=== PATIENT | female | born 1970 | race Caucasian/White ===

== ENCOUNTER 2024-05-11 14:13 | Outpatient (AMB) | payer OTHER, SELFPAY ==
--- NOTE | 2024-05-11 14:32 | A.OFFVIS_ITS ---
Vital Signs 05/11/24 14:33 Height 5 ft 3 in Weight 143 lb BMI 25.3 BP 100/62 Blood Pressure Location Lt brachial Position Sitting Pulse 80 Pulse Source Pulse Oximeter Pulse Oximetry (%) 100 Oxygen Delivery Method Room Air Intake Visit Reasons: Carpal tunnel Intake Note: Patient presents today for carpal tunnel syndrome. Allergies ciprofloxacin [From Cipro] Allergy (Mild, Verified 05/11/24 14:36) Rash Penicillins Allergy (Mild, Verified 05/11/24 14:36) Unknown HPI HPI Carpal tunnel: Details: Intermittent right parathesia when she wakes up in the morning. Left hand parathesia resolved with wrist brace. Her left wrist brace is inter changeable and she sometimes uses it on her right wrist with benefit. chronic left sided neck pain. She has had pain radiating to anterior chest/shoulder, self resolves. She has a associated chest pain with stress. When she palpates left anterior superior chest she has pain. In the last year she has had echocardiogram and stress test, which patient reports were normal. [facility] Medical History (Updated 05/11/24 @ 21:17 by Gagandeep Bautista MD) Shoulder pain Carpal tunnel syndrome Social History (Updated 05/11/24 @ 14:42 by Lavinia Archuleta CMA) Alcohol intake: current Alcohol intake frequency: a few times a month Alcohol type: wine Patient Tobacco Use Status: Never used Tobacco Review of Systems Const All systems reviewed & are unremarkable except as noted in HPI and below Physical Exam Vital Signs: Last Vital Signs Pulse 80 05/11/24 14:33 BP 100/62 05/11/24 14:33 Pulse Ox 100 05/11/24 14:33 Oxygen Delivery Method Room Air 05/11/24 14:33 BMI result Body Mass Index 25.3 Const Other: General: Comfortable Skin: No lesions seen MSK: Positive Phalen's test bilateral. Good range of motion of wrists. No synovitis of any joints in her hands and wrists. Tenderness to palpate left trapezius. No spinous process tenderness of cervical spine. Good range of motion of cervical spine. She has localized tenderness to left anterior chest inferior 2 clavicle without any skin changes or masses palpated. Assessment & Plan Assessment & Plan (1) Carpal tunnel syndrome: Comment: Bilateral. Clinical diagnosis. She has found benefit with using left wrist brace. Code(s): G56.00 - Carpal tunnel syndrome, unspecified upper limb Category: Medical Plan: Bilateral upper extremity EMGs ordered Prescription for right carpal wrist brace given to patient Continue to use wrist braces at night Return to clinic in 3 months (2) Trapezius muscle strain: Comment: Left sided neck pain is due to trapezius strain. Discussed diagnosis and manag ement. Code(s): S46.819A - Strain of other muscles, fascia and tendons at shoulder and upper arm level, unspecified arm, initial encounter Category: Medical Plan: PT ordered with myofascial release Return to clinic in 3 months (3) Chest pain, muscular: Comment: Likely due to pectoralis major strain. Discussed diagnosis and management Code(s): R07.89 - Other chest pain Category: Medical Plan: Applied topical diclofenac gel 1% to affected area every 4-6 hours as needed or try topical lidocaine OTC applied to affected area every 4-6 hours as needed PT ordered for patient to obtain exercises for stretching chest muscles Return to clinic in 3 months Orders: Orders NE electromyogram (EMG) Today G56.00 - Carpal tunnel syndrome, unspecified up per limb PT Evaluation and Treatment Today R07.89 - Other chest pain, S46.819A - Strain of other muscles, fascia and tendons at shoulder and upper arm level, unspecified arm, initial encounter Medications: New arm brace (Wrist Brace) Wear at night Right cockup wrist brace Dx: carpal tunnel syndrome 1 ea 0RF arm brace (Wrist Brace) Wear at night Right cockup wrist brace Dx: carpal tunnel syndrome 1 ea 0RF arm brace (Wrist Brace) Wear at night Right cockup wrist brace Dx: carpal tunnel syndrome 1 ea 0RF Coding Level of Care Code Est Pt Level 4 (61395) Complex EM visit Add On G2211 Diagnoses Carpal tunnel syndrome G56.00 Trapezius muscle strain S46.819A Chest pain, muscular R07.89
[2024-05-11 14:33] VITALS: BP 100/62; PULSE 80; O2SAT 100; BMI 25.3
--- OUTSIDE RECORDS SUMMARY | 2024-05-11 16:47 | XMS_ITS | Continuity of Care Document ---
Author Organization [facility] Address [address] [place] [address], [address] [place] [address]- Care Team Providers Care Last Marker Name Role Phone Brandan MARIN, Wolf Glass Primary Care Physician [phone] Encounter [facility] [id number] Date(s): 03/11/24 - 04/10/24 [facility] [employer] [facility] [address], [address] [place], [place] [address] Attending Physician: Rita Doty Admitting Physician: Rita Doty Referring Physician: Rita Doty Encounter Type: Triage Allergies, Adverse Reactions, Alerts Substance Criticality Severity Reaction Reaction Severity Status penicillin Active Cipro Active Immunizations Given and Recorded Vaccine Date Status Refusal Reason diphtheria/tetanus/pertussis, acel(DTaP) 12/08/10 Given Medications buPROPion 300 mg/24 hours (XL) oral tablet, extended release 1 tablet = 300 mg, By Mouth, Daily, # 30 tablet, 0 Refills, Maintenance, 02/09/24 8:22:00 AM EDT, ER Tablet, Partial fill upon patient request if the prescription is for a schedule II opioid drug. Start Date: 02/09/24 Status: Ordered Quantity: 30.0 Unit: tablet Repeat number: 1 topiramate 50 mg oral tablet 1 tablet = 50 mg, By Mouth, 2 times a day, # 180 tablet, 0 Refills, Maintenance, 02/09/24 8:22:00 AM EDT, Tablet, Partial fill upon patient request if the prescription is for a schedule II opioid drug. Start Date: 02/09/24 Status: Ordered Quantity: 180.0 Unit: tablet Repeat number: 1 Problem List Condition Confirmation Course Effective Dates Status Health St atus Informant Anxiety Confirmed Active Counseling Confirmed Active Social History Social History Type Response Smoking Status Never (less than 100 in lifetime) entered on: 02/09/24 Sex Sex Representation Female (finding) Patient Care team information Care Team Personnel Name: Wolf Gipson MD Position: [facility] Outreach Member Role: PCP Address: [address] [place] [address] Telecom: Care Team Related Persons Name: EVERETTE ALATORRE Name: PATEL MARIEE Insurance Providers Guarantor name: BEATRIZ MARIEE Health Plan Information #: 1 Payer: [employer] Member Number: NA Policy Number: NA Group Number: NA
== END 2024-05-11 15:15 | disposition home or self-care (01) ==
PROVIDERS: Visit Provider Internal Medicine Rheumatology
DX: G56.00 Carpal tunnel syndrome, unspecified upper limb (principal); S46.819A Strain of other muscles, fascia and tendons at shoulder and upper arm level, unspecified arm, initial encounter; R07.89 Other chest pain
CPT/HCPCS: 99214; G2211

== ENCOUNTER → 2024-05-11 14:13 | Outpatient (BNVA) | payer OTHER, SELFPAY | PROVIDERS: Visit Provider Internal Medicine Rheumatology | DX: G56.00 Carpal tunnel syndrome, unspecified upper limb (principal); R07.89 Other chest pain; S46.812A Strain of other muscles, fascia and tendons at shoulder and upper arm level, left arm, initial encounter; X58.XXXA Exposure to other specified factors, initial encounter; Y93.9 Activity, unspecified; Y92.9 Unspecified place or not applicable; Y99.9 Unspecified external cause status | CPT/HCPCS: 99212 ==

== ENCOUNTER 2024-09-22 14:05 | Outpatient (AMB) | payer OTHER, SELFPAY ==
--- NOTE | 2024-09-22 14:03 | MHC.OFFVIS ---
Vital Signs 09/22/24 14:05 Height 5 ft 3 in Weight 150 lb BMI 26.6 BP 100/60 Blood Pressure Location Lt brachial Position Sitting Intake Visit Reasons: 3 months f/u Intake Note: Patient presents today for carpal tunnel syndrome. Accompanied by: Self / Same As Patient Allergies ciprofloxacin [From Cipro] Allergy (Mild, Verified 09/22/24 14:04) Rash Penicillins Allergy (Mild, Verified 09/22/24 14:04) Unknown HPI HPI 3 months f/u: Details: She has been wearing bilateral wrist braces at night with benefit. She does not wake up with hand paraesthesia. She had to reschedule EMG on 2 occasions due to her father being hospitalized for congestive heart failure. She continues to have intermittent neck pain and chest pain. Self resolving. [facility] Medical History Shoulder pain Carpal tunnel syndrome Social History Alcohol intake: current Alcohol intake frequency: a few times a month Alcohol type: wine Patient Tobacco Use Status: Never used Tobacco Physical Exam Vital Signs: Last Vital Signs BP 100/60 09/22/24 14:05 BMI result Body Mass Index 26.6 Const Other: General: Comfortable Skin: No lesions seen MSK: Good range of motion of wrists. No synovitis of any joints in her hands and wrists. Tenderness to palpate left trapezius. No spinous process tenderness of cervical spine. Good range of motion of cervical spine. She has localized tenderness to left anterior chest inferior to clavicle without any skin changes or masses palpated. Assessment & Plan Assessment & Plan (1) Carpal tunnel syndrome: Comment: Bilateral. Clinical diagnosis. She has found benefit with using bilateral wrist braces. She had to schedule EMG on 2 occasions. We discussed since EMG would not add to her management at this time she will hold off on further evaluation. If in the future she has uncontrolled symptoms while wearing cock-up wrist braces, then she will pursue EMG for further evaluation. Code(s): G56.00 - Carpal tunnel syndrome, unspecified upper limb Category: Medical Qualifiers: Laterality: bilateral Qualified Code(s): G56.03 - Carpal tunnel syndrome, bilateral upper limbs Plan: Continue to wear bilateral cock-up wrist braces at night Return to clinic in 4 months (2) Trapezius muscle strain: Comment: Intermittent. Left sided neck pain is due to trapezius strain. Code(s): S46.819A - Strain of other muscles, fascia and tendons at shoulder and upper arm level, unspecified arm, initial encounter Category: Medical Qualifiers: Laterality: left Encounter type: subsequent encounter Qualified Code(s): S46.812D - Strain of other muscles, fascia and tendons at shoulder and upper arm level, left arm, subsequent encounter Plan: PT reordered with myofascial release and TENs unit tial Return to clinic in 4 months (3) Chest pain, muscular: Comment: Intermittent. Likely due to pectoralis major strain. Code(s): R07.89 - Other chest pain Category: Medical Plan: Applied topical diclofenac gel 1% to affected area every 4-6 hours as needed or try topical lidocaine OTC applied to affected area every 4-6 hours as needed PT reordered for patient to obtain exercises for stretching chest muscles Return to clinic in 4 months Coding Level of Care Code Est Pt Level 4 (28217) Complex EM visit Add On G2211 Diagnoses Bilateral carpal tunnel syndrome G56.03 Laterality: bilateral Strain of left trapezius muscle, subsequent encounter S46.812D Laterality: left Encounter type: subsequent encounter Chest pain, muscular R07.89
[2024-09-22 14:05] VITALS: BP 100/60; BMI 26.6
--- OUTSIDE RECORDS SUMMARY | 2024-09-22 14:15 | XMS_ITS | Clinical Summary ---
Author Organization [facility] Address [address] [place] [address] Phone Care Team Providers Care Collection Support Specialist Name Role Phone Wolf Gipson MD Primary Care Provider + [phone] Allergies Active Allergy Reactions Criticality Noted Date Comments Ciprofloxacin 03/18/2021 Other Hydrochloride Hives/Urticaria Penicillins 03/18/2021 Pollen Extracts 06/08/2024 Medications lidocaine (XYLOCAINE) 5 % ointment apply topically to the vulva every 4 hours as needed for pain Active buPROPion XL (WELLBUTRIN XL) 300 mg 24 hr tablet Take 1 tablet (300 mg total) by mouth 1 (one) time each day. Do not crush, chew, or split. Active topiramate (TOPAMAX) 50 mg tablet Take 1 tablet (50 mg total) by mouth 1 (one) time each day. Active Active Problems Problem Noted Date Diagnosed Date Herpes genitalis Social History Tobacco Use Types Packs/Day Years Used Date Smoking Tobacco: Never Smokeless Tobacco: Never Alcohol Use Standard Drinks/Week Comments Yes 0 (1 standard drink = 0.6 oz pur e alcohol) occasional wine Comments Unknown Sex and Gender Information Value Date Recorded Sex Assigned at Female 05/17/2024 1:56 PM EST Legal Sex Female 10:33 PM EST Gender Identity Female 05/17/2024 1:56 PM EST Sexual Orientation Straight 05/17/2024 1: 56 PM EST Obstetrics History Last Filed Vital Signs Vital Sign Reading Time Taken Comments Blood Pressure 130/90 06/08/2024 9:52 AM EST Pulse 78 06/08/2024 9:52 AM EST Temperature - - Respiratory Rate - - Oxygen Saturation 99% 06/08/2024 9:52 AM EST Inhaled Oxygen Concentration - - Weight 68 kg (150 lb) 06/08/2024 9:52 AM EST Height 160 cm (5' 3 ) 06/08/2024 9:52 AM EST Body Mass Index 26.57 06/08/2024 9:52 AM EST Plan of Treatment Upcoming Encounters Date Type Department Care Team (Late st Contact Info) Description 12/02/2024 3:30 PM EDT Ancillary Procedure [facility] [address] [place] [address] Health Maintenance Due Date Last Done Comments Breast Cancer Screening 1971 Hepatitis B Vaccines (1 of 3 - 19+ 3-dose series) 1990 Cervical Cancer Screening: P ap Smear 09/02/2011 09/01/2008 DTaP,Tdap,and Td Vaccines (2 - Tdap) 12/08/2020 12/08/2010 Pneumococcal Vaccine: 50+ Ye ars (1 of 1 - PCV) 2021 Zoster Vaccines (1 of 2) 2021 Colorectal Cancer Screening: Colonoscopy 03/30/2022 Depression Screening 03/30/2022 HIV Screening 03/30/2022 Hepatitis C Screening 03/30/2022 Social Influencers of Health Screening 03/30/2022 COVID-19 Vaccine (1 - 2023-2 5 season) 2023 Influenza Vaccine (Season Ended) 2024 HIB Vaccines Aged Out No longer eligi ble based on patient's age to complete this topic HPV Vaccines Aged Out No longer eligi ble based on patient's age to complete this topic Hepatitis A Vaccines Aged Out No long er eligible based on patient's age to complete this topic IPV Vaccines Aged Out No longer eligi ble based on patient's age to complete this topic MMR Vaccines Aged Out No longer eligi ble based on patient's age to complete this topic Meningococcal ACWY Vaccine Aged Out N o longer eligible based on patient's age to complete this topic Meningococcal B Vaccine Aged Out No l onger eligible based on patient's age to complete this topic Pneumococcal Vaccine: Pediat rics (0 to 5 Years) and At-Risk Patients (6 to 64 Years) Aged Out No longer eligi ble based on patient's age to complete this topic RSV Immunization Patients Un isabel 20 months Aged Out No longer eligible b ased on patient's age to complete this topic Varicella Vaccines Aged Out No longer eligible based on patient's age to complete this topic Procedures Procedure Name Priority Date/Time Associated Diagnosis Comments PAP SMEAR Routine 09/01/2008 from Last 3 Months or Most Recently Relevant to Health Maintenance Results * Pap Smear (09/01/2008) Pap smear No Interpretation , Abstracted us Historical Provider HEALTH MAINTENANCE Final Result from Last 3 Months or Most Recently Relevant to Health Maintenance Insurance [facility] [employer] Care Teams Collection Support Specialist Relationship Specialty Start Date End Date Wolf Gipson MD [address] [place] [address] PCP - General 05/06/07
== END 2024-09-22 14:49 | disposition home or self-care (01) ==
LOC: HO.RHES 14:06
PROVIDERS: PCP Internal Medicine; Visit Provider Internal Medicine Rheumatology
DX: G56.03 Carpal tunnel syndrome, bilateral upper limbs (principal); S46.812D Strain of other muscles, fascia and tendons at shoulder and upper arm level, left arm, subsequent encounter; R07.89 Other chest pain
CPT/HCPCS: 99214; G2211

== ENCOUNTER → 2024-09-22 14:05 | Outpatient (BNVA) | payer OTHER, SELFPAY | PROVIDERS: PCP Internal Medicine; Visit Provider Internal Medicine Rheumatology | DX: G56.03 Carpal tunnel syndrome, bilateral upper limbs (principal); S46.812D Strain of other muscles, fascia and tendons at shoulder and upper arm level, left arm, subsequent encounter; R07.89 Other chest pain | CPT/HCPCS: 99212 ==

== ENCOUNTER 2025-04-04 13:45 | Outpatient (AMB) | payer OTHER, SELFPAY ==
--- NOTE | 2025-04-04 13:46 | MHC.OFFVIS ---
Vital Signs 04/04/25 13:47 Height 5 ft 3 in Weight 145 lb 1.027 oz BMI 25.7 BP 110/80 Blood Pressure Location Rt brachial Position Sitting Pulse 75 Pulse Source Pulse Oximeter Pulse Oximetry (%) 98 Oxygen Delivery Method Room Air Intake Visit Reasons: 4 months Intake Note: Patient presents today for carpal tunnel syndrome. Accompanied by: Self / Same As Patient Allergies ciprofloxacin (From Cipro) Allergy (Mild, Verified 04/04/25 13:46) Rash Penicillins Allergy (Mild, Verified 04/04/25 13:46) Unknown HPI HPI 4 months: Details: Pain in her neck improved with PT. She has been under lot of stress, which has exacerbated neck pain. She has not been compliant with doing home exercise program learned from PT consistently. She has intermittent neck pain that is localized to her spine. In the past a few years ago she was told that she had mild cervical disc disease. Two to 3 times a week she may not wear her wrist braces at night. She continues to have hand numbness. [facility] Medical History Shoulder pain Carpal tunnel syndrome Social History Alcohol intake: current Alcohol intake frequency: a few times a month Alcohol type: wine Patient Tobacco Use Status: Never used Tobacco Physical Exam Vital Signs: Last Vital Signs Pulse 75 04/04/25 13:47 BP 110/80 04/04/25 13:47 Pulse Ox 98 04/04/25 13:47 Oxygen Delivery Method Room Air 04/04/25 13:47 BMI result Body Mass Index 25.7 Const Other: General: Comfortable Skin: No lesions seen MSK: Good range of motion of wrists. No synovitis of any joints in her hands and wrists. Tenderness to palpate mid to lower spinous process of cervical spine. Good range of motion of cervical spine. Assessment & Plan Assessment & Plan (1) Carpal tunnel syndrome: Comment: Bilateral. Clinical diagnosis. She has found benefit with using bilateral wrist braces but has not been consistent with wearing them daily. Code(s): G56.00 - Carpal tunnel syndrome, unspecified upper limb Category: Medical Qualifiers: Laterality: bilateral Qualified Code(s): G56.03 - Carpal tunnel syndrome, bilateral upper limbs Plan: Continue to wear bilateral cock-up wrist braces at night EMG bilateral upper extremities ordered to confirm diagnosis Return to clinic in 4 months (2) Trapezius muscle strain: Comment: Intermittent. Left sided neck pain is due to trapezius strain. Improved with PT. Code(s): S46.819A - Strain of other muscles, fascia and tendons at shoulder and upper arm level, unspecified arm, initial encounter Category: Medical Qualifiers: Encounter type: subsequent encounter Laterality: left Qualified Code(s): S46.812D - Strain of other muscles, fascia and tendons at shoulder and upper arm level, left arm, subsequent encounter Plan: Discussed importance of having a consistent home exercise program for neck strengthening. Consider TENs unit Return to clinic in 4 months (3) Neck pain: Comment: intermittent. She reports history of mild cervical degenerative disc disease on an x-ray a few years ago. She localizes pain to her spinous process, which is present on exam today. Code(s): M54.2 - Cervicalgia Category: Medical Plan: C-spine x-ray ordered for evaluation of progression of osteoarthritis Resume home PT program for neck strengthening Return to clinic in 4 months Orders: Orders NE nerve conduction velocity Today G56.03 - Carpal tunnel syndrome, bilateral upper limbs XR cervical spine 3V Today M54.2 - Cervicalgia Coding Level of Care Code Est Pt Level 4 (76294) Complex visit Add On G2211 Diagnoses Bilateral carpal tunnel syndrome G56.03 Laterality: bilateral Strain of left trapezius muscle, subsequent encounter S46.812D Encounter type: subsequent encounter Laterality: left Neck pain M54.2
[2025-04-04 13:47] VITALS: BP 110/80; PULSE 75; O2SAT 98; BMI 25.7
== END 2025-04-04 14:26 | disposition home or self-care (01) ==
LOC: HO.RHES 13:45
PROVIDERS: PCP Internal Medicine; Visit Provider Internal Medicine Rheumatology
DX: G56.03 Carpal tunnel syndrome, bilateral upper limbs (principal); S46.812D Strain of other muscles, fascia and tendons at shoulder and upper arm level, left arm, subsequent encounter; M54.2 Cervicalgia
CPT/HCPCS: 99214

== ENCOUNTER → 2025-04-04 13:45 | Outpatient (BNVA) | payer OTHER, SELFPAY | PROVIDERS: PCP Internal Medicine; Visit Provider Internal Medicine Rheumatology | DX: M54.2 Cervicalgia (principal); G56.03 Carpal tunnel syndrome, bilateral upper limbs; S46.812D Strain of other muscles, fascia and tendons at shoulder and upper arm level, left arm, subsequent encounter; X58.XXXD Exposure to other specified factors, subsequent encounter | CPT/HCPCS: 99212 ==